=== PATIENT | female | born 1960 | race Caucasian/White ===

== ENCOUNTER → 2019-12-13 | Outpatient (CLI) | payer OTHER ==
--- NOTE | 2019-12-13 16:20 | KCIC ---
KNEE RIGHT 3V DATE: 12/13/2019 12:00 AM INDICATION: Right knee pain 1 week, pain medial aspect, no recent injury. / Spl. Instructions: / History: COMPARISON: None. FINDINGS: Bones: There is no evidence of acute fracture or dislocation. Joints: Mild degenerative changes of the medial and patellofemoral compartments of the knee. Small joint effusion. Miscellaneous: None. IMPRESSION: No acute osseous abnormality. Mild degenerative changes. Small joint effusion. Electronically signed by: Shaquille Arrieta MD (12/13/2019 4:17 PM) [id number]
== END ==
LOC: KCIC 15:02
PROVIDERS: ATTEND Nurse Practitioner Family
DX: M17.11 Unilateral primary osteoarthritis, right knee (principal); M25.461 Effusion, right knee
CPT/HCPCS: 73562

== ENCOUNTER → 2020-02-28 | Outpatient (CLI) | payer OTHER ==
--- NOTE | 2020-02-28 15:12 | KCIC ---
EXAMINATION: MRI RIGHT KNEE WITHOUT IV CONTRAST CLINICAL HISTORY: Right knee pain x 3 weeks, medial pain when walking. TECHNIQUE: Multiplanar multisequential images obtained through the knee without intravenous contrast. COMPARISON: Right knee radiographs 12/13/2019 FINDINGS: MENISCI: Medial Meniscus: Intact. Lateral Meniscus: Intact. LIGAMENTS: ACL: Intact PCL: Intact MCL: Intact LCL Complex: Intact CARTILAGE: Medial Femoral Condyle: Small areas(s) of predominantly high grade (greater than 50% thickness) carti carlos alberto loss and or fissuring with smaller area(s) of full thickness cartilage loss and or fissuring in the anterior weightbearing portion of the condyle Medial Tibial Plateau: Normal Lateral Femoral Condyle: Normal Lateral Tibial Plateau: Normal Patella: Large area(s) of full thickness cartilage loss/fissuring in the medial facet Trochlea: Large area(s) of full thickness cartilage loss/fissuring with subchondral marrow reactive/c ystic changes in the medial trochlea TENDONS: Distal quadriceps and patellar tendons intact. Popliteus tendon intact. BONES AND MARROW: No evidence of acute fracture or suspicious marrow replacing process. Chronic react paddy changes at the PCL tibial attachment MUSCLES: Muscle bulk and signal intensity within normal limits. JOINT FLUID AND SYNOVIUM: Small joint effusion. No synovitis. No Julien's cyst. 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 No meniscus tear or acute ligamentous injury. Electronically signed by: Kyle Florentino DO (02/28/2020 3:10 PM) [id number]
== END ==
LOC: KCIC MRI 12:27
PROVIDERS: ATTEND Physician Assistant
DX: M17.11 Unilateral primary osteoarthritis, right knee (principal); M25.561 Pain in right knee
CPT/HCPCS: 73721